=== PATIENT | female | born 1980 | race Two or more races ===

== ENCOUNTER 2019-06-26 13:08 | Emergency (ER) | payer MEDICAID ==
[~2019-06-26] VITALS: Ht 160 cm; Wt 99.0 kg
[2019-06-26] MEDS ORDERED: HYDROCODONE/ACETAMINOPHEN 5/325MG TABLET PO ONE (13:30)
[2019-06-26] MEDS ORDERED: TETANUS, DIPHTHERIA, PERTUSSIS VAC/PF 0.5ML (>7YR OLD) IM ONE (13:30)
[2019-06-26] MEDS ORDERED: CEPHALEXIN 250MG CAPSULE PO ONE (13:30)
[2019-06-26] MEDS ORDERED: LORAZEPAM 0.5MG TABLET PO ONE (13:30)
[2019-06-26] MEDS ORDERED: SILVER SULFADIAZINE 1% CREAM 50GM TOP SCH (14:00)
[2019-06-26 14:34] VITALS: BP 148/89
== END 2019-06-26 14:34 | disposition home or self-care (01) ==
LOC: ER 13:08
DX: T22.10XA Burn of first degree of shoulder and upper limb, except wrist and hand, unspecified site, initial encounter (principal); R00.0 Tachycardia, unspecified; F41.1 Generalized anxiety disorder; F43.0 Acute stress reaction; X10.0XXA Contact with hot drinks, initial encounter; Y93.89 Activity, other specified; Y92.018 Other place in single-family (private) house as the place of occurrence of the external cause; Z23 Encounter for immunization
CPT/HCPCS: 16000; 90471; 90715; 99284